=== PATIENT | male | born 1935 | race Caucasian/White ===

== ENCOUNTER 2016-08-18 15:52 | Emergency (ER) | payer OTHER ==
[~2016-08-18] VITALS: Ht 170.2 cm; Wt 67.1 kg
[~2016-08-18 15:52] MED LIST: B-12 COMPL1000 MCG/1 IJ; COMBIGAN O20 DROP/5 BOTH EYES; DORZOLAMIDE HCL10 ML BOTH EYES; EXELON1.5 MG PO; LEXAPRO10 MG PO; LIPITOR20 MG PO; SINEMET CR 25-1 EACH PO
[2016-08-18] MEDS ORDERED: SEROQUEL12.5 MG PO (16:25)
[2016-08-18] MEDS ORDERED: DEPAKOTE250 MG PO (16:26)
[2016-08-18 16:40] LABS: HEMATOCRIT 37.5 % (38.0-50.0); MCHC 32.3 G/DL (30.0-36.0); MCV 96.2 FL (86-99); MEAN PLAT.VOLUME 8.2 uM^3 (9.0-12.4); PLATELET COUNT 143 K/uL (156-360); RBC DIS.WIDTH-CV 12.9 % (11.8-14.6); RBC DIS.WIDTH-SD 45.2 % (39-53)
[2016-08-18 16:49] LABS: CHLORIDE 108 mEq/L (99-109); POTASSIUM 4.7 mEq/L (3.7-5.4); SODIUM 142 mEq/L (136-147)
[2016-08-18 16:51] LABS: GLUCOSE 95 mg/dL (70-99)
[2016-08-18 16:53] LABS: ANION GAP 8 MEQ/L (2-14)
[2016-08-18 16:55] LABS: GFR ESTIMATE (CALCULATED) 57 mL/min/
[2016-08-18 16:56] LABS: UREA NITROGEN (BUN) 27 mg/dL (9-23)
[2016-08-18 18:23] LABS: ADD MIUA? YES; BILIRUBIN NEGATIVE; BLOOD MODERATE; COLOR YELLOW ((YELLOW)); GLUCOSE (STRIP) 50; KETONES 5; LEUKOCYTES NEGATIVE; NITRITE NEGATIVE; PROTEIN (STRIP) NEGATIVE; UROBILINOGEN 0.2 MG/DL (0.2-1.0)
[2016-08-18 18:30] LABS: BACTERIA NONE SEEN /HPF; EPITHELIAL CELLS NONE SEEN /HPF; MUCUS TRACE /LPF; RED BLOOD CELLS TNTC /HPF (0-5); UCUL ADDED? NO; WHITE BLOOD CELLS 0-5 /HPF (0-5)
[2016-08-18 21:06] VITALS: BP 141/86
== END 2016-08-18 21:10 ==
LOC: EME → EDBD 15:52 → EME 15:52
PROVIDERS: Emergency Medicine
PROC: 0T9B70Z Drainage of Bladder with Drainage Device, Via Natural or Artificial Opening (ICD-10-PCS; principal; 2016-08-18)
DX: R33.9 Retention of urine, unspecified (principal); R31.9 Hematuria, unspecified; J45.909 Unspecified asthma, uncomplicated; F03.90 Unspecified dementia, unspecified severity, without behavioral disturbance, psychotic disturbance, mood disturbance, and anxiety
CPT/HCPCS: 80048; 81003; 85027; 99281; 99285

== ENCOUNTER 2017-05-29 20:06 | Inpatient (IN) | payer OTHER ==
[~2017-05-29] VITALS: Ht 172.7 cm; Wt 74.1 kg
[~2017-05-29 20:06] MED LIST changes: +DEPAKOTE250 MG PO; +SEROQUEL12.5 MG PO
[2017-05-29 20:47] LABS: HEMATOCRIT 32.1 % (38.0-50.0); HEMOGLOBIN 10.3 G/DL (12.5-16.6); MCH 30.2 PG (29.0-34.0); MCHC 32.1 G/DL (30.0-36.0); MCV 94.1 FL (86-99); PLATELET COUNT 115 K/uL (156-360); RBC DIS.WIDTH-CV 13.5 % (11.8-14.6); RBC DIS.WIDTH-SD 46.7 % (39-53); RED BLOOD COUNT 3.41 M/uL (4.00-5.50); WHITE BLOOD COUNT 11.3 K/uL (4.1-10.2)
[2017-05-29 20:57] LABS: CHLORIDE 105 mEq/L (99-109); POTASSIUM 4.3 mEq/L (3.7-5.4); SODIUM 137 mEq/L (136-147)
[2017-05-29 20:59] LABS: GLUCOSE 265 mg/dL (70-99)
[2017-05-29 21:03] LABS: GFR ESTIMATE (CALCULATED) 34 mL/min/ (58.99-99999); UREA NITROGEN (BUN) 40 mg/dL (9-23)
[2017-05-29 21:39] LABS: TROP-I INTERPRETATION NEGATIVE; TROPONIN-I 0.03 ng/mL (0.0-0.30)
[2017-05-29] MEDS ORDERED: SOLU-MEDRO40 MG/1 ML IJ (23:16)
[2017-05-29] MEDS ORDERED: DUONEB 2.5-0.5 M3 ML AEROSOL (23:18)
[2017-05-29] MEDS ORDERED: ZITHROMAX250 MG PO (23:20)
[2017-05-29] MEDS ORDERED: ZITHROMAX500 MG PO (23:20)
[2017-05-29] MEDS ORDERED: AZOPT 1% O200 DROP/1 RIGHT EYE (23:21)
[2017-05-29] MEDS ORDERED: FEOSOL325 MG PO (23:22)
[2017-05-29] MEDS ORDERED: FLOMAX0.4 MG PO (23:22)
[2017-05-29] MEDS ORDERED: PROSCAR5 MG PO (23:22)
[2017-05-29] MEDS ORDERED: XALATAN2.5 ML BOTH EYES (23:23)
[2017-05-29] MEDS ORDERED: EXELON6 MG PO (23:24)
[2017-05-29] MEDS ORDERED: NUPLAZID17 MG PO (23:24)
[2017-05-29] MEDS ORDERED: SINEMET 25-1001 EACH PO (23:25)
[2017-05-29] MEDS ORDERED: TAMIFLU30 MG PO (23:26)
[2017-05-29] MEDS ORDERED: TUMS FRESHERS200 MG PO (23:26)
[2017-05-29] MEDS ORDERED: TYLENOL REGULA325 MG PO (23:27)
[2017-05-29] MEDS ORDERED: DULCOLAX10 MG PR (23:28)
[2017-05-29] MEDS ORDERED: MILK OF MAGN PO (23:29)
[2017-05-29] MEDS ORDERED: SILVADENE20 GM TP (23:30)
[2017-05-30 08:03] VITALS: BP 112/62
[2017-05-30 12:03] LABS: INTER. NORMALIZED RATIO 1.2
[2017-05-30 12:06] LABS: PTT 23.6 SEC (25-37)
[2017-05-30 15:52] VITALS: BP 146/72
[2017-05-30 19:41] VITALS: BP 146/78
[2017-05-30 23:35] VITALS: BP 140/69
[2017-05-31 03:40] VITALS: BP 135/73
[2017-05-31 06:47] LABS: BASOPHIL (%) 0.3 % (0-1); EOSINOPHIL (%) 3.2 % (0-5); EOSINOPHIL COUNT 0.2 K/uL (0-0.3); HEMATOCRIT 28.3 % (38.0-50.0); HEMOGLOBIN 8.8 G/DL (12.5-16.6); IMMATURE GRANULOCYTE (%) 0.4 % (0.0-0.7); LYMPHOCYTE (%) 21.5 % (15-42); LYMPHOCYTE COUNT 1.5 K/uL (1.0-2.8); MCH 29.4 PG (29.0-34.0); MCHC 31.1 G/DL (30.0-36.0); MCV 94.6 FL (86-99); MONOCYTE (%) 8.5 % (3-12); MONOCYTE COUNT 0.6 K/uL (0-0.8); NEUTROPHIL (%) 66.1 % (45-76); NEUTROPHIL COUNT 4.6 K/uL (1.8-6.4); PLATELET COUNT 98 K/uL (156-360); RBC DIS.WIDTH-CV 13.5 % (11.8-14.6); RBC DIS.WIDTH-SD 46.3 % (39-53); RED BLOOD COUNT 2.99 M/uL (4.00-5.50)
[2017-05-31 07:05] LABS: INTER. NORMALIZED RATIO 1.2
[2017-05-31 07:08] LABS: PTT 71.5 SEC (25-37)
[2017-05-31 08:05] LABS: CHLORIDE 112 MEQ/L (99-109); GFR ESTIMATE (CALCULATED) 48 mL/min/ (58.99-99999); POTASSIUM 3.9 MEQ/L (3.7-5.4); SODIUM 141 MEQ/L (136-147); UREA NITROGEN (BUN) 31 mg/dL (9-23)
[2017-05-31 08:06] LABS: CREATININE 1.5 MG/DL (0.6-1.3); GLUCOSE 116 mg/dL (70-99)
[2017-05-31 08:40] VITALS: BP 120/62
[2017-05-31 13:14] LABS: INTER. NORMALIZED RATIO 1.2
[2017-05-31 13:16] LABS: PTT 70.5 SEC (25-37)
[2017-05-31 16:28] VITALS: BP 170/70
[2017-06-01] VITALS: BP 167/76
[2017-06-01 06:19] LABS: HEMATOCRIT 29.2 % (38.0-50.0); HEMOGLOBIN 9.5 G/DL (12.5-16.6); MCH 29.9 PG (29.0-34.0); MCHC 32.5 G/DL (30.0-36.0); MCV 91.8 FL (86-99); PLATELET COUNT 115 K/uL (156-360); RBC DIS.WIDTH-CV 13.1 % (11.8-14.6); RBC DIS.WIDTH-SD 44.3 % (39-53); RED BLOOD COUNT 3.18 M/uL (4.00-5.50); WHITE BLOOD COUNT 7.7 K/uL (4.1-10.2)
[2017-06-01 06:45] LABS: CHLORIDE 112 MEQ/L (99-109); CREATININE 1.5 MG/DL (0.6-1.3); GFR ESTIMATE (CALCULATED) 48 mL/min/ (58.99-99999); GLUCOSE 111 mg/dL (70-99); POTASSIUM 3.5 MEQ/L (3.7-5.4); SODIUM 144 MEQ/L (136-147); UREA NITROGEN (BUN) 26 mg/dL (9-23)
[2017-06-01 07:17] LABS: INTER. NORMALIZED RATIO 1.2; PTT 62.1 SEC (25-37)
[2017-06-01 08:00] VITALS: BP 152/88
[2017-06-01 16:55] VITALS: BP 152/78
[2017-06-02 00:05] VITALS: BP 170/90
[2017-06-02 04:40] VITALS: BP 129/79
[2017-06-02 07:10] LABS: INTER. NORMALIZED RATIO 1.9
[2017-06-02 07:13] LABS: PTT 62.8 SEC (25-37)
[2017-06-02 19:00] VITALS: BP 125/74
[2017-06-02 23:51] VITALS: BP 156/75
[2017-06-03 06:33] LABS: PTT 86.7 SEC (25-37)
[2017-06-03 06:36] LABS: INTER. NORMALIZED RATIO 3.2
[2017-06-03 08:00] VITALS: BP 172/86
[2017-06-03] MEDS ORDERED: CEFTRIAXONE1 G1 IV (09:33)
[2017-06-03] MEDS ORDERED: COUMADIN1 MG PO (09:35)
[2017-06-03] MEDS ORDERED: NUPLAZID17 MG PO (09:36)
[2017-06-03] MEDS ORDERED: FAMOTIDINE20 MG PO (09:37)
== END 2017-06-03 12:57 | DRG 176 ==
LOC: EME → EDBD 20:06 → EME 20:06 → EDOF 23:34 → 2EAST 23:34 → ENRESERV 23:37 → 2EAST 05-30 07:32 → ENPENDDIS 06-03 → 2EAST 06-03 12:57
PROVIDERS: Family Medicine; Internal Medicine; Physician Assistant
DX: I26.99 Other pulmonary embolism without acute cor pulmonale (principal); I82.433 Acute embolism and thrombosis of popliteal vein, bilateral; I82.413 Acute embolism and thrombosis of femoral vein, bilateral; I82.443 Acute embolism and thrombosis of tibial vein, bilateral; G20 Parkinson's disease; R32 Unspecified urinary incontinence; Z99.3 Dependence on wheelchair; N18.9 Chronic kidney disease, unspecified; K21.9 Gastro-esophageal reflux disease without esophagitis; N40.0 Benign prostatic hyperplasia without lower urinary tract symptoms; F03.90 Unspecified dementia, unspecified severity, without behavioral disturbance, psychotic disturbance, mood disturbance, and anxiety; Z87.891 Personal history of nicotine dependence; R09.02 Hypoxemia; R53.1 Weakness; D64.9 Anemia, unspecified; Z74.01 Bed confinement status; J20.9 Acute bronchitis, unspecified
CPT/HCPCS: 71045; 78580; 80048; 81003; 84484; 85025; 85027; 85379; 85610; 85730; 93005; 93970; 94640; 94640 76; 94799; 99202; 99281; 99285; A9540; J0696; J7030

== ENCOUNTER 2017-08-01 18:27 | Emergency (ER) | payer OTHER ==
[~2017-08-01] VITALS: Ht 175.3 cm; Wt 74.1 kg
[~2017-08-01 18:27] MED LIST changes: +AZOPT 1% O200 DROP/1 RIGHT EYE; +CEFTRIAXONE1 G1 IV; +COUMADIN1 MG PO; +DULCOLAX10 MG PR; +DUONEB 2.5-0.5 M3 ML AEROSOL; +EXELON6 MG PO; +FAMOTIDINE20 MG PO; +FEOSOL325 MG PO; +FLOMAX0.4 MG PO; +MILK OF MAGN PO; +NUPLAZID17 MG PO; +PROSCAR5 MG PO; +SILVADENE20 GM TP; +SINEMET 25-1001 EACH PO; +SOLU-MEDRO40 MG/1 ML IJ; +TAMIFLU30 MG PO; +TUMS FRESHERS200 MG PO; +TYLENOL REGULA325 MG PO; +XALATAN2.5 ML BOTH EYES; +ZITHROMAX250 MG PO; +ZITHROMAX500 MG PO
[2017-08-01 23:08] VITALS: BP 128/64
== END 2017-08-01 23:11 ==
LOC: EME 18:27
DX: S32.9XXA Fracture of unspecified parts of lumbosacral spine and pelvis, initial encounter for closed fracture (principal); W19.XXXA Unspecified fall, initial encounter; G20 Parkinson's disease; F02.80 Dementia in other diseases classified elsewhere, unspecified severity, without behavioral disturbance, psychotic disturbance, mood disturbance, and anxiety; N40.0 Benign prostatic hyperplasia without lower urinary tract symptoms; I10 Essential (primary) hypertension; F32.9 Major depressive disorder, single episode, unspecified; F41.9 Anxiety disorder, unspecified
CPT/HCPCS: 70450; 73502; 99281; 99284

== ENCOUNTER 2017-08-06 20:59 | Inpatient (IN) | payer OTHER ==
[~2017-08-06] VITALS: Ht 170.2 cm; Wt 72.3 kg
[2017-08-06 22:27] LABS: BASOPHIL (%) 0.2 % (0-1); EOSINOPHIL (%) 0.2 % (0-5); HEMATOCRIT 29.1 % (38.0-50.0); HEMOGLOBIN 9.2 G/DL (12.5-16.6); IMMATURE GRANULOCYTE (%) 0.8 % (0.0-0.7); LYMPHOCYTE (%) 10.3 % (15-42); LYMPHOCYTE COUNT 1.8 K/uL (1.0-2.8); MCH 28.8 PG (29.0-34.0); MCHC 31.6 G/DL (30.0-36.0); MCV 91.2 FL (86-99); MONOCYTE (%) 6.5 % (3-12); MONOCYTE COUNT 1.1 K/uL (0-0.8); PLATELET COUNT 274 K/uL (156-360); RBC DIS.WIDTH-CV 14.8 % (11.8-14.6); RBC DIS.WIDTH-SD 50.1 % (39-53); RED BLOOD COUNT 3.19 M/uL (4.00-5.50)
[2017-08-06 22:34] LABS: PTT 38.7 SEC (25-37)
[2017-08-06 22:37] LABS: CHLORIDE 114 mEq/L (99-109); POTASSIUM 4.2 mEq/L (3.7-5.4); SODIUM 152 mEq/L (136-147)
[2017-08-06 22:39] LABS: GLUCOSE 199 mg/dL (70-99)
[2017-08-06 22:43] LABS: CREATININE 1.3 mg/dL (0.6-1.3); GFR ESTIMATE (CALCULATED) 56 mL/min/ (58.99-99999)
[2017-08-06 22:44] LABS: UREA NITROGEN (BUN) 39 mg/dL (9-23)
[2017-08-06 22:45] LABS: INTER. NORMALIZED RATIO 4.8
[2017-08-06 22:47] LABS: TROP-I INTERPRETATION NEGATIVE; TROPONIN-I 0.01 ng/mL (0.0-0.30)
[2017-08-07] VITALS (7 sets, daily range): BP systolic 103–135; BP diastolic 56–81
[2017-08-07] MEDS ORDERED: GENTAMICIN40 MG/1 ML IM (01:46)
[2017-08-07] MEDS ORDERED: TYLENOL REGULA325 MG PO (01:47)
[2017-08-07] MEDS ORDERED: AMLODIPINE BESYL5 MG PO (01:47)
[2017-08-07] MEDS ORDERED: COUMADIN3 MG PO (01:49)
[2017-08-07] MEDS ORDERED: COUMADIN1 MG PO (01:50)
[2017-08-07] MEDS ORDERED: PEPCID20 MG PO (01:51)
[2017-08-07] MEDS ORDERED: NUPLAZID17 MG PO (01:51)
[2017-08-07] MEDS ORDERED: CRANBERRY425 MG PO (01:52)
[2017-08-07] MEDS ORDERED: TRAMADOL HCL50 MG PO (01:53)
[2017-08-07] MEDS ORDERED: REMERON15 M2 PO (01:56)
[2017-08-07 10:20] LABS: BASE EXCESS 2.5 mEq/L (-3 to +3); BICARBONATE 26.2 mEq/L (22-26); CARBOXY HGB 1.8 % (0-5); METHEMOGLOBIN 1.4 % (0-1.5); PCO2 36 mm Hg (35-45); PO2 72 mm Hg (80-100); pH 7.47 (7.35-7.45)
[2017-08-07 10:21] LABS: COMMENTS - BLOOD GASES A+C+; DEVICE NC; O2 FLOW 1 L/MIN; SITE RR; TOTAL RESP RATE 16 resp/min
[2017-08-07 13:45] LABS: INTER. NORMALIZED RATIO 4.4
[2017-08-08 05:19] VITALS: BP 124/70
[2017-08-08 07:46] VITALS: BP 143/66
[2017-08-08 08:16] LABS: INTER. NORMALIZED RATIO 4.2
[2017-08-08 11:28] VITALS: BP 132/62
[2017-08-08 15:40] VITALS: BP 131/69
[2017-08-08 20:08] VITALS: BP 127/65
[2017-08-08 23:50] VITALS: BP 133/72
[2017-08-09 04:07] VITALS: BP 160/81
[2017-08-09 07:10] LABS: BASOPHIL (%) 0.1 % (0-1); EOSINOPHIL (%) 0 % (0-5); HEMATOCRIT 23.8 % (38.0-50.0); HEMOGLOBIN 7.6 G/DL (12.5-16.6); IMMATURE GRANULOCYTE (%) 1.5 % (0.0-0.7); LYMPHOCYTE (%) 6.8 % (15-42); LYMPHOCYTE COUNT 0.7 K/uL (1.0-2.8); MCH 28.4 PG (29.0-34.0); MCHC 31.9 G/DL (30.0-36.0); MCV 88.8 FL (86-99); MONOCYTE (%) 2.2 % (3-12); MONOCYTE COUNT 0.2 K/uL (0-0.8); NEUTROPHIL (%) 89.4 % (45-76); NEUTROPHIL COUNT 8.8 K/uL (1.8-6.4); PLATELET COUNT 289 K/uL (156-360); RBC DIS.WIDTH-CV 13.7 % (11.8-14.6); RBC DIS.WIDTH-SD 44.9 % (39-53); RED BLOOD COUNT 2.68 M/uL (4.00-5.50); WHITE BLOOD COUNT 9.9 K/uL (4.1-10.2)
[2017-08-09 07:35] LABS: INTER. NORMALIZED RATIO 5.3
[2017-08-09 07:36] LABS: CHLORIDE 107 MEQ/L (99-109); CREATININE 0.9 MG/DL (0.6-1.3); GFR ESTIMATE (CALCULATED) > 59 mL/min/ (58.99-99999); POTASSIUM 3.7 MEQ/L (3.7-5.4); UREA NITROGEN (BUN) 25 mg/dL (9-23)
[2017-08-09 07:46] LABS: GLUCOSE 362 mg/dL (70-99); SODIUM 139 MEQ/L (136-147)
[2017-08-09 08:45] VITALS: BP 161/67
[2017-08-09 11:15] VITALS: BP 174/74
[2017-08-09 15:23] VITALS: BP 160/72
[2017-08-09 20:15] VITALS: BP 162/70
[2017-08-09 23:31] VITALS: BP 164/72
[2017-08-10 05:22] VITALS: BP 169/78
[2017-08-10 06:07] LABS: INTER. NORMALIZED RATIO 4.1
[2017-08-10 08:25] VITALS: BP 148/69
[2017-08-10 10:55] VITALS: BP 176/79
[2017-08-10 17:00] VITALS: BP 144/73
== END 2017-08-10 19:39 | disposition hospice, home (50) | DRG 177 ==
LOC: EME → EDBD 20:59 → EME 20:59 → EDOF 08-07 01:39 → 3EAST 08-07 01:39 → ENRESERV 08-07 02:08 → 3EAST 08-07 03:20
PROVIDERS: Emergency Medicine; Family Medicine; Internal Medicine Pulmonary Disease
DX: J69.0 Pneumonitis due to inhalation of food and vomit (principal); E87.0 Hyperosmolality and hypernatremia; R09.02 Hypoxemia; E78.5 Hyperlipidemia, unspecified; I10 Essential (primary) hypertension; K21.9 Gastro-esophageal reflux disease without esophagitis; N40.0 Benign prostatic hyperplasia without lower urinary tract symptoms; Z66 Do not resuscitate; F02.80 Dementia in other diseases classified elsewhere, unspecified severity, without behavioral disturbance, psychotic disturbance, mood disturbance, and anxiety; G31.83 Neurocognitive disorder with Lewy bodies; N18.2 Chronic kidney disease, stage 2 (mild); I12.9 Hypertensive chronic kidney disease with stage 1 through stage 4 chronic kidney disease, or unspecified chronic kidney disease; Z87.891 Personal history of nicotine dependence; Z86.711 Personal history of pulmonary embolism; S72.001D Fracture of unspecified part of neck of right femur, subsequent encounter for closed fracture with routine healing; S32.599D Other specified fracture of unspecified pubis, subsequent encounter for fracture with routine healing; N39.0 Urinary tract infection, site not specified; I26.99 Other pulmonary embolism without acute cor pulmonale; Z51.5 Encounter for palliative care; R53.81 Other malaise; R41.82 Altered mental status, unspecified; B95.62 Methicillin resistant Staphylococcus aureus infection as the cause of diseases classified elsewhere
CPT/HCPCS: 36600; 71045; 71275; 80048; 80048 91; 80170; 80202; 82803; 82948; 83605; 84484; 85025; 85025 91; 85610; 85730; 87040; 87641; 92526 GN; 92610 GN; 93005; 94799; 99202; 99281; 99285; J0692; J1580; J2060; J2543; J2920; J2930; J3370; J7030; J7050; J7070; J7512